=== PATIENT | male | born 1950 | race Caucasian/White ===

== ENCOUNTER 2023-09-06 02:18 | Inpatient (IN) | payer MEDICARE, BC, SELFPAY ==
[2023-09-06] VITALS (14 sets, daily range): BP systolic 93–152; BP diastolic 58–108; PULSE 75–107; RESP 16–20; TEMP 36.2–37.2; O2SAT 94–100; BMI 21.6; BMI 21.7
--- NOTE | 2023-09-06 03:15 | EKG12_ITS ---
Test Reason : PRE-OP Blood Pressure : / mmHG Vent. Rate : 099 BPM Atrial Rate : 099 BPM P-R Int : 156 ms QRS Dur : 084 ms QT Int : 382 ms P-R-T Axes : 051 -01 -06 degrees QTc Int : 490 ms Normal sinus rhythm NS ST T WAVE CHANGES Abnormal ECG No previous ECGs available Confirmed by Harrison Mohamud ([id number]), editor farm journal PORFIRIO SARABIA ([id number]) on 09/08/2023 10:58:10 AM Referred By: YUNG Confirmed By:Harrison Mohamud
[2023-09-06] MEDS: Morphine 2 MG/ML Syringe IV (03:31)
[2023-09-06] MEDS: 0.9% Saline Lock 10 ML Syringe IV (03:33)
[2023-09-06] MEDS: 0.9% Normal Saline (1000mL) 1,000 ML 75 ML IV ×3 (03:35→19:01)
--- NOTE | 2023-09-06 04:04 | HP.PCM_ITS ---
HPI - General General Date of Admission: 09/06/23 Date of Service: 09/06/23 Chief Complaint: Gross hematuria history of recurrent prostate cancer HPI Narrative MARTIN LOWRY, is a 72 M who presents to the hospital with sudden onset of bleeding he has a history of prostate cancer and had a radical prostatectomy in the past he thinks about 5 years ago he had recurrence of disease and had proton beam therapy as salvage radiation therapy afterwards. He then had recurrence after this and is currently taking hormone deprivation therapy as well as Zytiga with prednisone. He is from out of town and was here camping and suddenly developed gross hematuria and he takes blood thinners as well. He was transferred from outside hospital for continued care. On admission he has a catheter in place is got gross blood coming from the catheter the nurses have been irrigating it and despite irrigation is still bloody. So plan to taken the surgery immediately for evacuation of all the blood clots hopefully can cauterize the source of the bleeding get a biopsy probably has recurrence of cancer or could be from radiation cystitis. All this was explained to the patient he obtain consent form and organ to go to surgery once the team is cecile ilable. Patient has significant amount of pain and was given morphine to help with pain control. [facility] Medical History (Updated 09/06/23 @ 04:[address] Kaushik Snow MD) Cancer Diabetes Hypertension Prostate CA Home Medications abiraterone 500 mg tablet 1,000 mg PO DAILY see 09/06/23 [History Last Taken Unknown] cephalexin 250 mg capsule 250 mg PO 4X/DAY atb 09/06/23 [History Last Taken Unknown] dapagliflozin propanediol 10 mg tablet (Farxiga) 10 mg PO DAILY see 09/06/23 [History Last Taken Unknown] ezetimibe 10 mg tablet 10 mg PO DAILY see 09/06/23 [History Last Taken Unknown] lisinopril 5 mg tablet 5 mg PO DAILY high blood pressure 09/06/23 [History Last Taken Unknown] pantoprazole 40 mg tablet,delayed release 40 mg PO DAILY stomach 09/06/23 [History Last Taken Unknown] prednisone 5 mg tablet 5 mg PO DAILY steroid 09/06/23 [History Last Taken Unknown] rosuvastatin 20 mg tablet 20 mg PO QHS 09/06/23 [History Last Taken Unknown] ticagrelor 90 mg tablet (Brilinta) 90 mg PO BID blood thinner 09/06/23 [History Last Taken Unknown] Allergy/AdvReac Type Severity Reaction Status Date / Time prasugrel [From Effient] Allergy Intermediate Hives Verified 09/06/23 02:54 Surgical History History of coronary artery stent placement History of prostatectomy Social History Smoking Status: Never smoker ROS Constitutional Constitutional: Denies chills, fever(s) or malaise Eyes Eyes: Denies blurry vision or change in vision ENT HEENT: Reports none Cardiovascular Cardiovascular: Denies chest pain or palpitations Respiratory/Chest Respiratory/Chest: Denies cough or shortness of breath with exertion Gastrointestinal Gastrointestinal: Denies abdominal pain, constipation or diarrhea Musculoskeletal Musculoskeletal: Denies back pain, joint stiffness or joint swelling Integumentary Integumentary: Denies dry skin, jaundice, lesions or rash Neurologic Neurologic: Denies confusion, syncope or weakness Psychiatric Psychiatric: Reports none; Denies anxiety or depression Endocrine Endocrinology: Denies excessive sweating, fatigue or flushing Hematologic/Lymphatic Hematologic/Lymphatic: Denies anemia, easy bleeding or easy bruising Vital Signs Vital Signs Vital Signs: 09/06/23 02:22 09/06/23 02:57 Temperature 98.1 F Temperature Source Oral Pulse Rate 80 Respiratory Rate 20 H Respiratory Effort Normal Non-Labored Respiratory Depth Normal Respiratory Pattern Normal Blood Pressure 145/88 H Blood Pressure Mean 107 Blood Pressure Source Monitor Blood Pressure Position Semi-Fowlers Blood Pressure Location Left Arm Pulse Ox 100 Oxygen Delivery Method Room Air Room Air Weight Weight: 70.261 kg Body Mass Index (BMI) 21.7 Physical Exam Const alert and oriented x3 General Appearance: cooperative HEENT normocephalic, head/scalp atraumatic, EAC's normal and TM's normal bilaterally Eyes PERRL and EOMs intact bilaterally Pupil: sluggish Neck no lymphadenopathy, supple and no JVD General: trachea midline Lymph Lymphatic: no lymphadenopathy noted, lymphedema and lymphadenopathy Resp normal respiratory effort, normal air movement and clear to auscultation bilaterally Cardio regular rate, regular rhythm and peripheral pulses 2+ throughout GI soft to palpation, non-tender and non-distended Extremity normal capillary refill and no clubbing, cyanosis or edema General Extremity: no tenderness to palpation of joints or extremities Skin no rashes or lesions noted General Skin Exam: turgor normal Lesions: no lesions Rashes: no rashes Neuro CN's II-XII intact bilaterally Speech: speech normal Motor Exam: strength 5/5 throughout; Negative for general weakness Psych thought process normal, cooperative and affect normal Appearance: appropriate Results Medical Records Data Attestation: I reviewed the patient's medical records Lab / Micro Data Attestation: I reviewed the patient's lab results. Imaging CT scan from outside hospital reviewed Assessment & Plan Assessment/Plan (1) Gross hematuria: PLAN: Plan to take her to surgery today for cystoscopy evacuation of his blood clots and cauterization of the bleeding will hold his Brilinta because of the significant bleeding he does have a history of coronary artery disease and had a stent placed in the past (2) Prostate CA: PLAN: Continue with abiraterone and prednisone,
[2023-09-06] MEDS: Cefazolin 1 GM/50 ML BAG IV ×3 (04:26→21:13)
[2023-09-06] MEDS: Lactated Ringers 1,000 ML 15 ML IV (04:34)
--- NOTE | 2023-09-06 05:10 | PCM.OPRPT ---
Report of Operation Date of Procedure: 09/06/23 Pre-Operative Diagnosis: Gross hematuria history of prostate cancer history of proton beam treatment for recurrence of disease Post-Operative Diagnosis: The same bleeding from the bladder neck Surgery/Procedure Performed:: Cystoscopy evacuation of blood clots cauterization of bleeding placement of a three-way Capellan catheter Description of Surgical Findings:: Is a 72-year-old male presented to the hospital as a transfer an outside emergency room with clot retention and severe pain. 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 scrotum is normal I went into the urethra with a 21 Micronesian rigid cystourethroscope was quite bloody hard to see through the channel eventually got all the clots out of the urethral channel and then initially was kind of difficult to find my way through the urethra into the bladder he did have a prostatectomy and also had prior treatment with proton beam therapy so the tissues were very stiff I then put a Glidewire through this cystoscope to help guide my way through this did demonstrate the curvature of the urethra and then once I got some blood clots out I was able to see through the urethra into the bladder again is very stiff but I had I went to the normal channel. Once I got inside the bladder it was completely flow for blood clots irrigated out all the clots out of the bladder and then once again the clots irrigated out I could see active bleeding coming from around the bladder neck but again the bleeding was pretty heavy so is very difficult to see exactly where the bleeding was as it would clear out it would just clot off so I used the Bugbee electrode and cauterized the bladder neck as best as possible but since visualization was so poor I I did not do an extensive amount of cauterization try to avoid injury to the ureteral orifices. Once again most of the clots out and some of the bladder neck cauterized and I put a 24 Micronesian three-way catheter into the bladder 30 cc in the balloon and will start him on continuous irrigation we will hold all blood thinners and will continue irrigation hopefully the bleeding will stop but again it was not able to stop it with the cauterization since it was extensive mount of bleeding around the bladder neck but will try catheter irrigation and conservative measures is to get the bleeding stopped. I will consult hospitalist service to help assist with his medical care we will get a set up labs CBC and a BMP in the PACU. Surgeon: Kaushik Snow Type of Anesthesia: MAC and Topical Anesth Drains: [address] Admit VTE Documentation VTE Present on Admission: No VTE Mechan Device Prophylaxis: SCD's VTE Pharm Prophylaxis ordered?: No
[2023-09-06 05:51] LABS: Absolute Lymphocyte Count 2.08 X10^3/uL (0.83-4.51); Absolute Neutrophil Count 14.7 X10^3/uL (2.0-7.7); Basophil# 0.09 X10^3/uL; Basophil% 0.5 % (0-1); Eosinophils% 0.5 % (0-5); Hematocrit 40.6 % (40-54); Lymphocyte # 2.08 X10^3/ul (0.83-4.51); Lymphocyte % 11.4 % (19-41); Mean Corpuscular Hgb 31.1 pg (27.0-32.0); Mean Corpuscular Volume 97.1 fL (80-94); Mean Platelet Vol. 10.5 fl (6.2-12.0); Monocyte# 1.12 X10^3/uL; Monocyte% 6.1 % (0-10); NRBC Flagged by Analyzer 0 % (0-5); Neutrophil # 14.74 X10^3/uL (2.7-7.7); Neutrophil % 80.8 % (47-70); Platelet Count 235 K/mm3 (150-450); RBC Distribution Width CV 13.3 % (11.6-14.6); RBC Distribution Width SD 47.8 fl (35.1-43.9); Red Blood Count 4.18 M/mm3 (4.6-6.2); White Blood Count 18.3 K/mm3 (4.4-11.0)
[2023-09-06 05:55] LABS: Anion Gap 10 (5-15); BUN 20 mg/dL (7-18); BUN/Creat Ratio 16.9 RATIO (10-20); Calcium,Total 8.4 mg/dL (8.5-10.1); Chloride 109 mmol/L (98-107); Creatinine, Serum 1.18 mg/dL (0.70-1.30); EST Glomerular Filtration Rate 64 mL/min (>60); Est Glom Filt Rate - Afr Amer 77 mL/min (>60); Estimated Creatinine Clearance 54.58 ml/min; Glucose 131 mg/dL (74-106); Potassium 3.4 mmol/L (3.5-5.1); Sodium Level 139 mmol/L (136-145)
[2023-09-06 05:57] LABS: Bedside Glucose 122 mg/dL (74-106)
[2023-09-06] MEDS: predniSONE 5 MG Tablet PO (07:55)
[2023-09-06] MEDS: Ezetimibe 10 MG Tablet PO (07:55)
[2023-09-06] MEDS: Pantoprazole Sodium 40 MG Tablet PO (07:55)
[2023-09-06] MEDS: Lisinopril 5 MG Tablet PO (07:55)
[2023-09-06] MEDS: Empagliflozin 25 MG Tablet PO (07:56)
--- NOTE | 2023-09-06 10:40 | CASEMGMT ---
RN?CM?PILATES INSTRUCTOR?CM?to room to meet with patient and for initial transition planning/care coordination?assessment.?RN?CM?introduced self and role at [facility].? Pt resting in bed w/eyes closed during most of the assessment and stated he is very tired. Most questions answered by . Care providers, pharmacy, and demographics verified/updated at this time. PCP: Dr Duong Yancey @ [facility] in [facility] Specialists:Dr Eliud Meyers (cardiology) and Dr Dickson (oncology)--both in [facility]. Preferred Pharmacy: [facility] Retail @ discharge. Insurance: MCR A/B, [place] Prescription Benefit:?yes LNOK: Becca Living Arrangements: Lives w/his in [place]. Independent. They came to [place] in their camper for the eclipse and camping in [place]. Pt is independent and able to assist, if needed. Transportation:?Pt and both drive. Camp general dentist/owner brought to [facility] this morning, as does not like to drive the camper far distances. Depending on how long pt will be in the hospital, the camp general dentist/owner offered to drive their camper closer to [facility] so is closer and can get transportation back/forth to [facility] easier. DME: ?Pt has a functioning glucometer w/supplies. HHC/SNF: No hx of either. Pt and wish for pt to return back to his camper @ discharge and then pt plans to drive camper back to [place] when he is able to drive that far. voices concerns re: cause of the bleeding and would like to talk w/Dr Snow. Omaira, MS3 RN CM, made aware. PLAN:??Home/back to camper w/ and then back to [place] when able to drive/travel that far. Kate BSN?RN?CM
[2023-09-06] MEDS: Ensure Plus High Protein 120 ML LIQUID PO (13:52)
--- NOTE | 2023-09-06 14:38 | PN.HOSP_ITS ---
Reason for Visit Reason for Visit: Diagnoses Malignant neoplasm of prostate (09/06/23) Gross hematuria (09/06/23) Subjective Subjective Patient was seen and examined today at request of urology, patient was admitted with hematuria, [place] was [place] from [place]. Patient has a history of prostate cancer with complete prostatectomy and follow-up radiation, he was taken to surgery today and a cystoscopy was done which showed bleeding at the bladder neck, this area was cauterized and the patient is in his room with a three-way Capellan undergoing bladder irrigation. Patient's past medical history includes several stents in the coronary artery, the last stent was placed in July 2023. Patient was on aspirin and Brilinta on admission. He is also taking a medication for prostate cancer. Patient states he was recently diagnosed with type 2 diabetes. Other medical problems include hyperlipidemia and essential hypertension. Objective Data Objective Data Vital Signs: Vital Signs Temp Pulse Resp BP Pulse Ox O2 Del Method 98.2 F 97 16 109/64 95 Room Air 09/06/23 14:00 09/06/23 14:00 09/06/23 14:00 09/06/23 14:00 09/06/23 14:00 09/06/23 14:00 Oxygen Delivery Method Room Air Weight: 70.261 kg Body Mass Index (BMI) 21.7 Intake & Output: Intake and Output for Last 24 Hours 09/04/23 09/05/23 09/06/23 23:59 23:59 23:59 Intake Total 1250 / 1250 Output Total 1999 / 1999 Balance -750 / -750 Lab / Micro Data 09/06/23 05:30 09/06/23 05:30 Labs: Laboratory Results - last 24 hr 09/06/23 05:30: WBC 18.3 H, RBC 4.18 L, Hgb 13.0, Hct 40.6, MCV 97.1 H, MCH 31.1, MCHC 32.0, RDW Std Deviation 47.8 H, RDW Coeff of Rayo 13.3, Plt Count 235, MPV 10.5, Immature Gran % (Auto) 0.700, Neut % (Auto) 80.8 H, Lymph % (Auto) 11.4 L, Bland % (Auto) 6.1, Eos % (Auto) 0.5, Baso % (Auto) 0.5, Absolute Neuts (auto) 14.7 H, Absolute Lymphs (auto) 2.08, Nucleated RBC % 0, Sodium 139, Potassium 3.4 L, Chloride 109 H, Carbon Dioxide 20.0 L, Anion Gap 10, BUN 20 H, Creatinine 1.18, Estim Creat Clear Calc 54.58, Est GFR (MDRD) Af Amer 77, Est GFR (MDRD) Non-Af 64, BUN/Creatinine Ratio 16.9, Glucose 131 H, Calcium 8.4 L 09/06/23 05:38: POC Glucose 122 H Physical Exam Const alert, oriented x3, no apparent distress, average body habitus and healthy appearing Constitutional Narrative: Patient has a three-way Capellan in place and is receiving bladder irrigation with return of bloody urine. General Appearance: cooperative, well kempt and well developed Orientation / Consciousness: awake, oriented to person, oriented to place and oriented to time HEENT normocephalic, head/scalp atraumatic and moist oral mucous membranes Eyes PERRL, EOMs intact bilaterally and conjunctivae normal Neck supple, no JVD, thyroid normal and no carotid bruits General: trachea midline Resp normal respiratory effort, no retractions, no use of accessory muscles and clear to auscultation bilaterally Auscultation: Negative for rales, rhonchi or wheezes Cardio regular rate, regular rhythm, S1 normal heart sound, S2 normal heart sound, no murmurs, no rub and no gallops GI normal to inspection, nondistended, normoactive bowel sounds, soft to palpation, non-tender and non-distended Extremity no clubbing, cyanosis or edema Skin no rashes or lesions noted General Skin Exam: no breakdown Neuro oriented x3, CN's II-XII intact bilaterally, moves all extremities, no focal motor deficits and no sensory deficits noted Sensorium / Orientation: awake, alert, oriented to person, oriented to place and oriented to time Speech: speech normal Psych affect normal Assessment & Plan Assessment/Plan (1) Gross hematuria: PLAN: Plan 1. Coronary artery disease-status post stent placement in July 2023-patient is currently off his Brilinta and aspirin, I will talk to his health information provider to find out if he can be switched to Plavix instead of Brilinta when he resumes the medication. #2 essential hypertension-patient will remain on his home medications, blood pressure will be monitored #3 prostate cancer-complicates care, management, recovery, and prognosis #4 type 2 diabetes-blood sugars will be monitored, sliding scale insulin will be administered as needed #5 gross hematuria secondary to bladder neck bleeding-patient is currently getting bladder irrigation, urology is managing his care Total clinical time spent by myself addressing the patient's medical issues, reviewing all of his data, and collaborating with patient's care team: 35 minutes Charges/Coding Visit Charges Inpatient E&M: 43288 Subs Hosp L2
--- NOTE | 2023-09-06 15:29 | CASEMGMT ---
Social Work Pt has been seen for SDOH screening. Pt and deny any home needs. Pt is from [place] and is traveling in the area in an RV with . Pt's had concerns with transportation back and forth from [place] and has contacted a car rental who will be delivering a car to the hospital today for 's transportation. Pt will discharge to the RV, which does have electric and water hookup, and stay until pt feels well enough to drive the RV home. Pt and with no additional needs. LILA Griffith
--- NOTE | 2023-09-06 15:47 | CHAPLAIN ---
Type of Pastoral Visit __x_ Initial Visit ___ Follow-up Visit ___ On-call Visit ___ General Patient Visit ___ Spiritual Assessment ___ Family Conference ___ Bereavement ___ Rapid Response ___ Code Blue ___ Other (describe below) Pastoral Care Referral From _x__ Patient ___ Family ___ Nurse ___ Physician ___ Hotel Maintenance Engineer ___ Obstetric Anaesthetist ___ Other (describe below) Sacrament/Intervention _x__ Active listening ___ Anointing ___ Baptist ___ Bereavement ___ Communion ___ Dana exploration ___ ___ Life review _x__ Prayer ___ Reconciliation ___ Sacrament of Sick _x__ Supportive presence ___ Wedding ___ Other (describe below) Pastoral Comments patient is from out of state; spouse is with him; both are welcoming of presence and spiritual care help; pt just returned from procedure and has some pain; prayer offered in support of relief; presence given to listen to their story; spouse asks for help about getting a rental car; this mechanical cad designer made phone call to local [employer] to assist spouse in her need for a car; [employer] will pick her up and get a car for her use;
--- NOTE | 2023-09-06 16:29 | NURSING ---
All documentation by student records coordinator, Zak Barba, reviewed by dance instructor, Veronica CERVANTES, RN.
[2023-09-06] MEDS: Atorvastatin Calcium 40 MG Tablet PO (21:13)
[2023-09-06] MEDS: Acetaminophen 325 MG Tablet 650 MG PO (21:13)
[2023-09-06 23:04] LABS: Bedside Glucose 159 mg/dL (74-106)
[2023-09-07 01:54] VITALS: BP 117/62; PULSE 78; RESP 18; TEMP 36.6; O2SAT 98
[2023-09-07 05:23] VITALS: BP 133/72; PULSE 63; RESP 18; TEMP 36.6; O2SAT 99
[2023-09-07] MEDS: Cefazolin 1 GM/50 ML BAG IV ×3 (05:25→22:00)
[2023-09-07] MEDS: 0.9% Normal Saline (1000mL) 1,000 ML 75 ML IV (07:06)
--- NOTE | 2023-09-07 07:41 | PCM.PN.GU ---
Subjective Subjective Patient presented with gross hematuria and bleeding from his bladder neck history of prostate cancer had radiation in the past, he was on Brilinta because a recent heart stent about a month ago so organ to start him back up on baby aspirin urine is clear today we can stop irrigation hopefully tomorrow we can send the patient home either with or without the catheter might be better to go home with a catheter less chance of bleeding while to consider this. I think we need to hold his Brilinta for like 7 days if were able to discuss this with his customer project manager in [place] I be happy to talk with them or he can talk to the hospitalist but I think for now I can start him back on baby aspirin as a protective factor and a break and would probably restart his Brilinta in about a week. Objective Data Objective Data Vital Signs: Vital Signs Temp Pulse Resp BP Pulse Ox O2 Del Method 97.9 F 63 18 133/72 H 99 Room Air 09/07/23 05:23 09/07/23 05:23 09/07/23 05:23 09/07/23 05:23 09/07/23 05:23 09/07/23 05:23 Oxygen Delivery Method Room Air Weight: 70.261 kg Body Mass Index (BMI) 21.7 Intake & Output: Intake and Output for Last 24 Hours 09/05/23 09/06/23 09/07/23 23:59 23:59 23:59 Intake Total 2277.5 / 2277.5 956.25 / 956.25 Output Total 8475 / 8475 1400 / 1400 Balance -6197.5 / -6197.5 -443.75 / -443.75 Lab / Micro Data 09/06/23 05:30 09/06/23 05:30 Labs: Laboratory Results - last 24 hr 09/06/23 21:22: POC Glucose 159 H
[2023-09-07 07:54] LABS: Bedside Glucose 89 mg/dL (74-106)
[2023-09-07 09:27] LABS: Absolute Lymphocyte Count 1.61 X10^3/uL (0.83-4.51); Absolute Neutrophil Count 11.2 X10^3/uL (2.0-7.7); Basophil# 0.06 X10^3/uL; Basophil% 0.4 % (0-1); Eosinophil# 0.32 X10^3/uL; Eosinophils% 2.2 % (0-5); Hematocrit 26.6 % (40-54); Hemoglobin 8.8 g/dL (13.0-16.5); Lymphocyte # 1.61 X10^3/ul (0.83-4.51); Lymphocyte % 11.3 % (19-41); Mean Corp Hgb Conc 33.1 g/dL (32-36); Mean Corpuscular Hgb 31.3 pg (27.0-32.0); Mean Corpuscular Volume 94.7 fL (80-94); Mean Platelet Vol. 10.3 fl (6.2-12.0); Monocyte# 1.04 X10^3/uL; Monocyte% 7.3 % (0-10); NRBC Flagged by Analyzer 0 % (0-5); Neutrophil # 11.18 X10^3/uL (2.7-7.7); Neutrophil % 78.3 % (47-70); Platelet Count 201 K/mm3 (150-450); RBC Distribution Width CV 13.6 % (11.6-14.6); RBC Distribution Width SD 47.1 fl (35.1-43.9); Red Blood Count 2.81 M/mm3 (4.6-6.2); White Blood Count 14.3 K/mm3 (4.4-11.0)
[2023-09-07 09:30] VITALS: BP 121/69; PULSE 91; RESP 16; TEMP 36.9; O2SAT 99
[2023-09-07] MEDS: Lisinopril 5 MG Tablet PO (09:33)
[2023-09-07] MEDS: Pantoprazole Sodium 40 MG Tablet PO (09:33)
[2023-09-07] MEDS: predniSONE 5 MG Tablet PO (09:33)
[2023-09-07] MEDS: Aspirin 81 MG TAB.CHEW PO (09:35)
[2023-09-07] MEDS: guaiFENesin Dm 10 ML UDC PO (11:49)
[2023-09-07 11:54] LABS: Bedside Glucose 153 mg/dL (74-106)
[2023-09-07] MEDS: Ensure Plus High Protein 120 ML LIQUID PO (14:32)
[2023-09-07 14:36] VITALS: BP 96/60; PULSE 81; RESP 16; TEMP 36.7; O2SAT 98
--- NOTE | 2023-09-07 16:56 | PN.HOSP_ITS ---
Reason for Visit Reason for Visit: Diagnoses Malignant neoplasm of prostate (09/06/23) Gross hematuria (09/06/23) Subjective Subjective Patient was seen and examined today, he still having hematuria but he appears more comfortable. CBC was obtained today and shows his hemoglobin is dropped to 8.8. Objective Data Objective Data Vital Signs: Vital Signs Temp Pulse Resp BP Pulse Ox O2 Del Method 98.1 F 81 16 96/60 98 Room Air 09/07/23 14:36 09/07/23 14:36 09/07/23 14:36 09/07/23 14:36 09/07/23 14:36 09/07/23 14:36 Oxygen Delivery Method Room Air Weight: 70.261 kg Body Mass Index (BMI) 21.7 Intake & Output: Intake and Output for Last 24 Hours 09/05/23 09/06/23 09/07/23 23:59 23:59 23:59 Intake Total 2277.5 / 2277.5 1636.50 / 1636.50 Output Total 8475 / 8475 2970 / 2970 Balance -6197.5 / -6197.5 -1333.50 / -1333.50 Lab / Micro Data 09/07/23 09:17 09/06/23 05:30 Labs: Laboratory Results - last 24 hr 09/06/23 21:22: POC Glucose 159 H 09/07/23 07:14: POC Glucose 89 09/07/23 09:17: WBC 14.3 H, RBC 2.81 L, Hgb 8.8 L, Hct 26.6 L, MCV 94.7 H, MCH 31.3, MCHC 33.1, RDW Std Deviation 47.1 H, RDW Coeff of Rayo 13.6, Plt Count 201, MPV 10.3, Immature Gran % (Auto) 0.500, Neut % (Auto) 78.3 H, Lymph % (Auto) 11.3 L, Stearns % (Auto) 7.3, Eos % (Auto) 2.2, Baso % (Auto) 0.4, Absolute Neuts (auto) 11.2 H, Absolute Lymphs (auto) 1.61, Nucleated RBC % 0 09/07/23 11:26: POC Glucose 153 H Physical Exam Narrative alert, oriented x3, no apparent distress, average body habitus and healthy appearing Constitutional Narrative: Patient has a three-way Capellan in place and is receiving bladder irrigation with return of bloody urine. General Appearance: cooperative, well kempt and well developed Orientation / Consciousness: awake, oriented to person, oriented to place and oriented to time HEENT normocephalic, head/scalp atraumatic and moist oral mucous membranes Eyes PERRL, EOMs intact bilaterally and conjunctivae normal Neck supple, no JVD, thyroid normal and no carotid bruits General: trachea midline Resp normal respiratory effort, no retractions, no use of accessory muscles and clear to auscultation bilaterally Auscultation: Negative for rales, rhonchi or wheezes Cardio regular rate, regular rhythm, S1 normal heart sound, S2 normal heart sound, no murmurs, no rub and no gallops GI normal to inspection, nondistended, normoactive bowel sounds, soft to palpation, non-tender and non-distended Extremity no clubbing, cyanosis or edema Skin no rashes or lesions noted General Skin Exam: no breakdown Neuro oriented x3, CN's II-XII intact bilaterally, moves all extremities, no focal motor deficits and no sensory deficits noted Sensorium / Orientation: awake, alert, oriented to person, oriented to place and oriented to time Speech: speech normal Psych affect normal Assessment & Plan Assessment/Plan (1) Gross hematuria: PLAN: Plan 1. Coronary artery disease-status post stent placement in July 2023-patient is currently off his Brilinta and aspirin, I received a phone call from his cutter apprentice hand covering biomedical service engineer today (nurse practitioner), she thought that changing the patient to Plavix at the time of discharge from the hospital and stopping his Brilinta was okay, she told me that the cutter apprentice hand would call me if there was any problem with that. As of the time of this dictation, I have not received a phone call back from his cutter apprentice hand. I discussed this with the patient today at my visit. #2 essential hypertension-patient will remain on his home medications, blood pressure will be monitored #3 prostate cancer-complicates care, management, recovery, and prognosis #4 type 2 diabetes-blood sugars will be monitored, sliding scale insulin will be administered as needed #5 gross hematuria secondary to bladder neck bleeding-patient is currently getting bladder irrigation, urology is managing his care #6 acute blood loss anemia secondary to acute hematuria-patient will not need transfused at this time Total clinical time spent by myself addressing the patient's medical issues, reviewing all of his data, and collaborating with patient's care team: 35 minutes Charges/Coding Visit Charges Inpatient E&M: 70907 Subs Hosp L2
[2023-09-07 17:27] LABS: Bedside Glucose 203 mg/dL (74-106)
[2023-09-07 20:40] VITALS: BP 108/60; PULSE 80; RESP 16; TEMP 37.1; O2SAT 98
[2023-09-07] MEDS: Ezetimibe 10 MG Tablet PO (22:03)
[2023-09-07] MEDS: Rosuvastatin 20 MG Tablet PO (22:28)
[2023-09-08] VITALS (13 sets, daily range): BP systolic 100–145; BP diastolic 60–88; PULSE 64–98; RESP 16–20; TEMP 36.1–37; O2SAT 96–100; BMI 21.7
--- NOTE | 2023-09-08 | THRO_PTH ---
PATIENT: MARTIN LOWRY LOC: MS3 U#:[id number] AGE/SX: 72/M ROOM: [id number] RE09/06/[address]: Dr. Kaushik Snow MD : [id number] BED: 1 DIS: 09/11/2023 SPEC #: [id number] RECD: 09/08/23 18:30 STATUS: ROBI CASTANON #: [id number] CIARA: 09/08/23 00:[address]: Kaushik Snow DEPT: SURGICAL PATHOLOGY RECD BY: Henry Rossi ENTERED: 09/11/23 10:07 SP TYPE: THROMBUS OTHR DR: DO Dr. Luis Manuel Almanza DO Tissues: BLOOD CLOT, NOS Procedures: Surgery Specimen Level III HEADER OPERATION: Cysto, Evacuation hematoma, cautery PRE-OP DIAGNOSIS: Radiation cystitis, prostate cancer, gross hematuria TISSUE SUBMITTED: Blood clot MICROSCOPIC DIAGNOSIS Blood clot, evacuation hematoma: Fragments of blood clot. / 09/12/23 MICROSCOPIC DESCRIPTION Slides are reviewed. GROSS DESCRIPTION Received in fixative is one container labeled with the patient's name and designated Clots. The specimen consists of multiple fragments of blood clots that in aggregate measure 9.0 x 9.0 x 4.0 cm. The specimen is totally submitted in one cassette. No tissue is identified. Case Specialist specimen is submitted in one cassettes. / 09/11/23 TC:5 CPT: 31822
[2023-09-08 00:35] LABS: Bedside Glucose 141 mg/dL (74-106)
[2023-09-08] MEDS: Cefazolin 1 GM/50 ML BAG IV ×3 (06:11→21:16)
[2023-09-08] MEDS: 0.9% Saline Lock 10 ML Syringe IV (06:11)
[2023-09-08 06:50] LABS: Bedside Glucose 112 mg/dL (74-106)
--- NOTE | 2023-09-08 06:58 | PCM.PN.GU ---
Subjective Subjective Yesterday morning and the urine was completely clear we did start him on baby aspirin now he is bleeding more still has ongoing bleeding. Will make him n.p.o. after taken back to surgery and try to cauterize the bladder again I am also going to run 1% out of the bladder see back if the bleeding stopped I made no guarantees the patient is possible that I could get the bleeding stopped and might be difficult the bleeding does not stop mild to get transferred out. Other problems and I have to leaving [facility]. Patient is aware that have to be leaving [facility]'s possibly made to get transferred out. Objective Data Objective Data Vital Signs: Vital Signs Temp Pulse Resp BP Pulse Ox O2 Del Method 97.9 F 64 16 105/60 96 Room Air 09/08/23 02:05 09/08/23 02:05 09/08/23 02:05 09/08/23 02:05 09/08/23 02:05 09/08/23 02:05 Oxygen Delivery Method Room Air Weight: 70.261 kg Body Mass Index (BMI) 21.7 Intake & Output: Intake and Output for Last 24 Hours 09/06/23 09/07/23 09/08/23 23:59 23:59 23:59 Intake Total 2277.5 / 2277.5 1686.50 / 1686.50 50 / 50 Output Total 8475 / 8475 3820 / 4620 1300 / 1300 Balance -6197.5 / -6197.5 -2133.50 / -2933.50 -1250 / -1250 Lab / Micro Data 09/07/23 09:17 09/06/23 05:30 Labs: Laboratory Results - last 24 hr 09/07/23 07:14: POC Glucose 89 09/07/23 09:17: WBC 14.3 H, RBC 2.81 L, Hgb 8.8 L, Hct 26.6 L, MCV 94.7 H, MCH 31.3, MCHC 33.1, RDW Std Deviation 47.1 H, RDW Coeff of Rayo 13.6, Plt Count 201, MPV 10.3, Immature Gran % (Auto) 0.500, Neut % (Auto) 78.3 H, Lymph % (Auto) 11.3 L, [place] % (Auto) 7.3, Eos % (Auto) 2.2, Baso % (Auto) 0.4, Absolute Neuts (auto) 11.2 H, Absolute Lymphs (auto) 1.61, Nucleated RBC % 0 09/07/23 11:26: POC Glucose 153 H 09/07/23 16:29: POC Glucose 203 H 09/07/23 21:58: POC Glucose 141 H 09/08/23 06:13: POC Glucose 112 H
[2023-09-08 07:53] LABS: Absolute Lymphocyte Count 2.26 X10^3/uL (0.83-4.51); Absolute Neutrophil Count 9.7 X10^3/uL (2.0-7.7); Basophil# 0.09 X10^3/uL; Basophil% 0.7 % (0-1); Eosinophil# 0.44 X10^3/uL; Eosinophils% 3.3 % (0-5); Hematocrit 24.1 % (40-54); Hemoglobin 7.8 g/dL (13.0-16.5); Lymphocyte # 2.26 X10^3/ul (0.83-4.51); Lymphocyte % 16.7 % (19-41); Mean Corp Hgb Conc 32.4 g/dL (32-36); Mean Corpuscular Volume 95.6 fL (80-94); Mean Platelet Vol. 10.6 fl (6.2-12.0); Monocyte# 0.88 X10^3/uL; Monocyte% 6.5 % (0-10); NRBC Flagged by Analyzer 0 % (0-5); Neutrophil # 9.74 X10^3/uL (2.7-7.7); Neutrophil % 72.1 % (47-70); Platelet Count 203 K/mm3 (150-450); RBC Distribution Width CV 13.5 % (11.6-14.6); RBC Distribution Width SD 47.3 fl (35.1-43.9); Red Blood Count 2.52 M/mm3 (4.6-6.2); White Blood Count 13.5 K/mm3 (4.4-11.0)
--- NOTE | 2023-09-08 07:59 | NURSING ---
HELPED PT BACK TO BED WITH BARBARA RN - PT FEELING VERY LIGHT HEADED- WILL BE GOING BACK TO SURGERY TODAY AND HBG PENDING - PT WILL REMAIN ON BEDREST - VS OBTAINED AND WNL
--- NOTE | 2023-09-08 11:49 | PCM.PN.HOSP ---
Reason for Visit Reason for Visit: Diagnoses Malignant neoplasm of prostate (09/06/23) Gross hematuria (09/06/23) Subjective Subjective Patient was seen and examined today, he is due to go to surgery by urology today due to continued hematuria. Patient's hemoglobin this morning was 7.8, I had nursing place a line by the PIC nurse so that we could draw labs and give blood. Patient's was in the room and I talked with her also. Objective Data Objective Data Vital Signs: Vital Signs Temp Pulse Resp BP Pulse Ox O2 Del Method 98.1 F 91 18 100/65 97 Room Air 09/08/23 08:00 09/08/23 08:00 09/08/23 08:00 09/08/23 08:00 09/08/23 08:00 09/08/23 08:24 Oxygen Delivery Method Room Air Weight: 70.261 kg Body Mass Index (BMI) 21.7 Intake & Output: Intake and Output for Last 24 Hours 09/06/23 09/07/23 09/08/23 23:59 23:59 23:59 Intake Total 2277.5 / 2277.5 1686.50 / 1686.50 50 / 50 Output Total 8475 / 8475 3820 / 4620 2530 / 2530 Balance -6197.5 / -6197.5 -2133.50 / -2933.50 -2480 / -2480 Lab / Micro Data 09/08/23 06:53 09/06/23 05:30 Labs: Laboratory Results - last 24 hr 09/07/23 11:26: POC Glucose 153 H 09/07/23 16:29: POC Glucose 203 H 09/07/23 21:58: POC Glucose 141 H 09/08/23 06:13: POC Glucose 112 H 09/08/23 06:53: WBC 13.5 H, RBC 2.52 L, Hgb 7.8 L, Hct 24.1 L, MCV 95.6 H, MCH 31.0, MCHC 32.4, RDW Std Deviation 47.3 H, RDW Coeff of Rayo 13.5, Plt Count 203, MPV 10.6, Immature Gran % (Auto) 0.700, Neut % (Auto) 72.1 H, Lymph % (Auto) 16.7 L, [place] % (Auto) 6.5, Eos % (Auto) 3.3, Baso % (Auto) 0.7, Absolute Neuts (auto) 9.7 H, Absolute Lymphs (auto) 2.26, Nucleated RBC % 0 Physical Exam Narrative alert, oriented x3, no apparent distress, average body habitus and healthy appearing Constitutional Narrative: Patient has a three-way Capellan in place and is receiving bladder irrigation with return of bloody urine. General Appearance: cooperative, well kempt and well developed Orientation / Consciousness: awake, oriented to person, oriented to place and oriented to time HEENT normocephalic, head/scalp atraumatic and moist oral mucous membranes Eyes PERRL, EOMs intact bilaterally and conjunctivae normal Neck supple, no JVD, thyroid normal and no carotid bruits General: trachea midline Resp normal respiratory effort, no retractions, no use of accessory muscles and clear to auscultation bilaterally Auscultation: Negative for rales, rhonchi or wheezes Cardio regular rate, regular rhythm, S1 normal heart sound, S2 normal heart sound, no murmurs, no rub and no gallops GI normal to inspection, nondistended, normoactive bowel sounds, soft to palpation, non-tender and non-distended Extremity no clubbing, cyanosis or edema Skin no rashes or lesions noted General Skin Exam: no breakdown Neuro oriented x3, CN's II-XII intact bilaterally, moves all extremities, no focal motor deficits and no sensory deficits noted Sensorium / Orientation: awake, alert, oriented to person, oriented to place and oriented to time Speech: speech normal Psych affect normal Assessment & Plan Assessment/Plan (1) Gross hematuria: PLAN: Plan 1. Coronary artery disease-status post stent placement in July 2023-patient is currently off his Brilinta and aspirin, I received a phone call from his blood bank technician covering medical oncology physician today (nurse practitioner), she thought that changing the patient to Plavix at the time of discharge from the hospital and stopping his Brilinta was okay, she told me that the blood bank technician would call me if there was any problem with that. As of the time of this dictation, I have not received a phone call back from his blood bank technician. I discussed this with the patient today at my visit. #2 essential hypertension-patient will remain on his home medications, blood pressure will be monitored #3 prostate cancer-complicates care, management, recovery, and prognosis #4 type 2 diabetes-blood sugars will be monitored, sliding scale insulin will be administered as needed #5 gross hematuria secondary to bladder neck bleeding-again urology will be taking the patient to surgery today, I talked to urology concerning placing the patient on Plavix at the time of discharge from the hospital. #6 acute blood loss anemia secondary to acute hematuria-patient will not need transfused at this time, CBC will be repeated tomorrow Total clinical time spent by myself addressing the patient's medical issues, reviewing all of his data, and collaborating with patient's care team: 35 minutes Charges/Coding Visit Charges Inpatient E&M: 45735 Subs Hosp L2
--- NOTE | 2023-09-08 12:15 | NURSING ---
Addendum entered by Lizzy Rueda 09/08/23 12:18: Inserted by Mimi Mendoza NP Original Note: Extended catheter IV inserted by Mimi. 20 gauge IV, 8cm. Dressing in tact. Flushed with saline, patent. IV fluids running.
[2023-09-08 12:21] LABS: Bedside Glucose 81 mg/dL (74-106)
--- NOTE | 2023-09-08 13:15 | NURSING ---
Pt sent to OR
[2023-09-08] MEDS: 0.9% Normal Saline (1000mL) 1,000 ML 15 ML IV (13:44)
--- NOTE | 2023-09-08 14:11 | PN.URO_ITS ---
Subjective Subjective 72-year-old male with a history of heart disease had a stent in recently was on Brilinta started bleeding from the prostate and bladder neck area history of prostate cancer with prostatectomy and removal of his prostate followed by radiation afterwards. He has been having significant bleeding which has not stopped just after irrigation and cauterizations or can taken back to surgery today cauterized the bladder neck which I think is where the source of bleeding is put another catheter and continue with irrigation. I was can use alum irrigation but the pharmacy did not have any alum available they are out of stock. Spoke to the patient today told him it is possible that with this procedure he could have worse bladder control afterwards and so have to cauterize more inside the bladder and prostate neck area here he has incontinence from his prostatectomy long time ago has to wear several pads per day I did warn the patient is possible this could get worse. Hopefully will stop the bleeding he is off all blood thinners he is at risk of having his coronary stent occlude because of the bleeding his blood thinners are on hold. Objective Data Objective Data Vital Signs: Vital Signs Temp Pulse Resp BP Pulse Ox O2 Del Method 98.0 F 87 16 103/65 98 Room Air 09/08/23 13:31 09/08/23 13:31 09/08/23 13:31 09/08/23 13:31 09/08/23 13:31 09/08/23 13:31 Oxygen Delivery Method Room Air Weight: 70.261 kg Body Mass Index (BMI) 21.7 Intake & Output: Intake and Output for Last 24 Hours 09/06/23 09/07/23 09/08/23 23:59 23:59 23:59 Intake Total 2277.5 / 2277.5 1686.50 / 1686.50 50 / 50 Output Total 8475 / 8475 3820 / 4620 3430 / 3430 Balance -6197.5 / -6197.5 -2133.50 / -2933.50 -3380 / -3380 Lab / Micro Data 09/08/23 06:53 09/06/23 05:30 Labs: Laboratory Results - last 24 hr 09/07/23 16:29: POC Glucose 203 H 09/07/23 21:58: POC Glucose 141 H 09/08/23 06:13: POC Glucose 112 H 09/08/23 06:53: WBC 13.5 H, RBC 2.52 L, Hgb 7.8 L, Hct 24.1 L, MCV 95.6 H, MCH 31.0, MCHC 32.4, RDW Std Deviation 47.3 H, RDW Coeff of Rayo 13.5, Plt Count 203, MPV 10.6, Immature Gran % (Auto) 0.700, Neut % (Auto) 72.1 H, Lymph % (Auto) 16 .7 L, [place] % (Auto) 6.5, Eos % (Auto) 3.3, Baso % (Auto) 0.7, Absolute Neuts (auto) 9.7 H, Absolute Lymphs (auto) 2.26, Nucleated RBC % 0 09/08/23 12:01: POC Glucose 81
--- NOTE | 2023-09-08 15:23 | OP.PCM_ITS ---
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 Post-Operative Diagnosis: The same Surgery/Procedure Performed:: Cystoscopy evacuation of blood clots and cauterization of bleeding from the bladder Description of Surgical Findings:: This is a 72-year-old male has a history of prostate cancer received radiation therapy in the past presented to the hospital with significant bleeding he recently had a heart attack and had a stent placed so he was on Brilinta and then developed significant bleeding took him to surgery in the middle the night 2 nights ago and reviewed moved a bunch of blood clots and cauterize some bleeding from the bladder neck we tried conservative measures with irrigation but has failed and continues to have bleeding and significant blood clots so is taken back to surgery again for second time this summer to do try to do more extensive cauterization as he would get the bleeding to stop . Taken back to the operating room this with induction of general anesthesia he was placed in dorsolithotomy position. The catheter was removed and then I went in with a 26 [place]utanese continuous-flow Olympus bipolar resectoscope I first Ellik out a significant amount of blood clots within the bladder I then used the button in the high setting on the coagulation and started cauterizing the bleeding blood vessels first was difficult to tell where it is coming from as bleeding from all over the place around the bladder neck anterior around the trigone so I cauterized extensively try to identify the ureteral orifices but it was very hard to see where the ureter orifices were with all the inflammation around the bladder neck just just very try to carefully cauterize without the ureteral orifices were not I cauterized around the bladder neck and cauterize anteriorly after cauterizing extensively that I think I got the bleeding stopped I drained the bladder folded up slowly let the bladder drained floated into the active bleeding there was another bleeding from the anterior bladder neck and cauterized this again and then I injected second time fill the bladder let it drain and this time I did not see more bleeding I then remove the cystoscope we placed a 22 [place]ut[place] catheter in the bladder irrigated and placed 30 cc in the balloon and put on continuous irrigation we will keep the patient in the hospital with continuous bladder irrigation on leg and to stop it for a few days and will continue with irrigation and we will hold all blood thinners.6 plan to check a CBC and a BMP in the PACU it is possible he may need a blood transfusion let the know Surgeon: Kaushik Snow Type of Anesthesia: General Estimated Blood Loss (mL): 300cc Admit VTE Documentation VTE Present on Admission: No VTE Mechan Device Prophylaxis: SCD's VTE Pharm Prophylaxis ordered?: No
[2023-09-08 16:03] LABS: Hematocrit 20.9 % (40-54); Hemoglobin 6.8 g/dL (13.0-16.5); Mean Corp Hgb Conc 32.5 g/dL (32-36); Mean Corpuscular Hgb 30.8 pg (27.0-32.0); Mean Corpuscular Volume 94.6 fL (80-94); Mean Platelet Vol. 10.4 fl (6.2-12.0); Platelet Count 183 K/mm3 (150-450); RBC Distribution Width CV 13.4 % (11.6-14.6); RBC Distribution Width SD 46.8 fl (35.1-43.9); Red Blood Count 2.21 M/mm3 (4.6-6.2); White Blood Count 9.1 K/mm3 (4.4-11.0)
[2023-09-08 16:11] LABS: Anion Gap 6 (5-15); BUN 15 mg/dL (7-18); Calcium,Total 7.6 mg/dL (8.5-10.1); Chloride 110 mmol/L (98-107); Creatinine, Serum 0.65 mg/dL (0.70-1.30); EST Glomerular Filtration Rate 127 mL/min (>60); Est Glom Filt Rate - Afr Amer 153 mL/min (>60); Estimated Creatinine Clearance 80.51 ml/min; Glucose 99 mg/dL (74-106); Potassium 2.8 mmol/L (3.5-5.1); Sodium Level 140 mmol/L (136-145)
[2023-09-08 17:05] LABS: Bedside Glucose 95 mg/dL (74-106)
[2023-09-08] MEDS: Rosuvastatin 20 MG Tablet PO (21:16)
[2023-09-08] MEDS: Ezetimibe 10 MG Tablet PO (21:16)
[2023-09-08 22:14] LABS: Bedside Glucose 215 mg/dL (74-106)
[2023-09-09] VITALS (10 sets, daily range): BP systolic 95–115; BP diastolic 52–70; PULSE 60–81; RESP 16–18; TEMP 36.5–36.9; O2SAT 95–98
[2023-09-09] MEDS: Cefazolin 1 GM/50 ML BAG IV ×3 (06:08→21:03)
[2023-09-09 06:22] LABS: Absolute Neutrophil Count 11.7 X10^3/uL (2.0-7.7); Basophil# 0.02 X10^3/uL; Basophil% 0.2 % (0-1); Hematocrit 28.8 % (40-54); Hemoglobin 9.7 g/dL (13.0-16.5); Lymphocyte % 6.9 % (19-41); Mean Corp Hgb Conc 33.7 g/dL (32-36); Mean Corpuscular Hgb 30.2 pg (27.0-32.0); Mean Corpuscular Volume 89.7 fL (80-94); Mean Platelet Vol. 10.4 fl (6.2-12.0); Monocyte# 0.29 X10^3/uL; Monocyte% 2.2 % (0-10); NRBC Flagged by Analyzer 0 % (0-5); Neutrophil # 11.67 X10^3/uL (2.7-7.7); Neutrophil % 89.9 % (47-70); Platelet Count 238 K/mm3 (150-450); RBC Distribution Width CV 14.6 % (11.6-14.6); RBC Distribution Width SD 46.9 fl (35.1-43.9); Red Blood Count 3.21 M/mm3 (4.6-6.2)
[2023-09-09 06:28] LABS: Bedside Glucose 161 mg/dL (74-106)
[2023-09-09 06:50] LABS: Anion Gap 7 (5-15); BUN 21 mg/dL (7-18); BUN/Creat Ratio 23.9 RATIO (10-20); Calcium,Total 8.2 mg/dL (8.5-10.1); Chloride 105 mmol/L (98-107); Creatinine, Serum 0.88 mg/dL (0.70-1.30); EST Glomerular Filtration Rate 90 mL/min (>60); Est Glom Filt Rate - Afr Amer 109 mL/min (>60); Estimated Creatinine Clearance 73.19 ml/min; Glucose 148 mg/dL (74-106); Potassium 3.6 mmol/L (3.5-5.1); Sodium Level 136 mmol/L (136-145)
[2023-09-09] MEDS: Lisinopril 5 MG Tablet PO (09:27)
[2023-09-09] MEDS: Pantoprazole Sodium 40 MG Tablet PO (09:27)
[2023-09-09] MEDS: predniSONE 5 MG Tablet PO (09:28)
[2023-09-09] MEDS: Insulin Lispro 100 UNIT/ML INSULN.PEN SC (11:44)
[2023-09-09 12:04] LABS: Bedside Glucose 255 mg/dL (74-106)
--- NOTE | 2023-09-09 13:07 | PN.HOSP_ITS ---
Reason for Visit Reason for Visit: Diagnoses Malignant neoplasm of prostate (09/06/23) Gross hematuria (09/06/23) Subjective Subjective Patient was seen and examined today, he does not have any hematuria in his Capellan bag today, he states that he has no bladder discomfort. His is in the room at the time my examination. Patient was given 2 units of packed red blood cells yesterday, his hemoglobin today is 9.7. Objective Data Objective Data Vital Signs: Vital Signs Temp Pulse Resp BP Pulse Ox O2 Del Method 98.1 F 79 18 115/69 98 Room Air 09/09/23 09:23 09/09/23 09:23 09/09/23 09:23 09/09/23 09:23 09/09/23 09:23 09/09/23 09:23 Oxygen Delivery Method Room Air Weight: 70.261 kg Body Mass Index (BMI) 21.7 Intake & Output: Intake and Output for Last 24 Hours 09/07/23 09/08/23 09/09/23 23:59 23:59 23:59 Intake Total 1686.50 / 1686.50 150 / 150 50 / 50 Output Total 3820 / 4620 4730 / 4730 1100 / 1100 Balance -2133.50 / -2933.50 -4580 / -4580 -1050 / -1050 Lab / Micro Data 09/09/23 06:07 09/09/23 06:07 Labs: Laboratory Results - last 24 hr 09/08/23 15:47: WBC 9.1, RBC 2.21 L, Hgb 6.8 L, Hct 20.9 L, MCV 94.6 H, MCH 30.8, MCHC 32.5, RDW Std Deviation 46.8 H, RDW Coeff of Rayo 13.4, Plt Count 183, MPV 10.4, Sodium 140, Potassium 2.8 L, Chloride 110 H, Carbon Dioxide 24.0, Anion Gap 6, BUN 15, Creatinine 0.65 L, Estim Creat Clear Calc 80.51, Est GFR (MDRD) Af Amer 153, Est GFR (MDRD) Non-Af 127, BUN/Creatinine Ratio 23.0 H, Glucose 99, Calcium 7.6 L 09/08/23 16:45: POC Glucose 95 09/08/23 17:36: Blood Type O POSITIVE, Antibody Screen NEGATIVE, Crossmatch See Detail 09/08/23 21:13: POC Glucose 215 H 09/09/23 06:07: WBC 13.0 H, RBC 3.21 L, Hgb 9.7 L, Hct 28.8 L, MCV 89.7 D, MCH 30.2, MCHC 33.7, RDW Std Deviation 46.9 H, RDW Coeff of Rayo 14.6, Plt Count 238, MPV 10.4, Immature Gran % (Auto) 0.800, Neut % (Auto) 89.9 H, Lymph % (Auto) 6.9 L, [place] % (Auto) 2.2, Eos % (Auto) 0.0, Baso % (Auto) 0.2, Absolute Neuts (auto) 11.7 H, Absolute Lymphs (auto) 0.90, Nucleated RBC % 0, Sodium 136, Potassium 3.6, Chloride 105, Carbon Dioxide 24.0, Anion Gap 7, BUN 21 H, Creatinine 0.88, Estim Creat Clear Calc 73.19, Est GFR (MDRD) Af Amer 109, Est GFR (MDRD) Non-Af 90, BUN/Creatinine Ratio 23.9 H, Glucose 148 H, Calcium 8.2 L, POC Glucose 161 H 09/09/23 11:40: POC Glucose 255 H Physical Exam Narrative alert, oriented x3, no apparent distress, average body habitus and healthy appearing Constitutional Narrative: Patient has a three-way Capellan in place and is receiving bladder irrigation with return of bloody urine. General Appearance: cooperative, well kempt and well developed Orientation / Consciousness: awake, oriented to person, oriented to place and oriented to time HEENT normocephalic, head/scalp atraumatic and moist oral mucous membranes Eyes PERRL, EOMs intact bilaterally and conjunctivae normal Neck supple, no JVD, thyroid normal and no carotid bruits General: trachea midline Resp normal respiratory effort, no retractions, no use of accessory muscles and clear to auscultation bilaterally Auscultation: Negative for rales, rhonchi or wheezes Cardio regular rate, regular rhythm, S1 normal heart sound, S2 normal heart sound, no murmurs, no rub and no gallops GI normal to inspection, nondistended, normoactive bowel sounds, soft to palpation, non-tender and non-distended Extremity no clubbing, cyanosis or edema Skin no rashes or lesions noted General Skin Exam: no breakdown Neuro oriented x3, CN's II-XII intact bilaterally, moves all extremities, no focal motor deficits and no sensory deficits noted Sensorium / Orientation: awake, alert, oriented to person, oriented to place and oriented to time Speech: speech normal Psych affect normal Assessment & Plan Assessment/Plan (1) Gross hematuria: PLAN: Plan 1. Coronary artery disease-status post stent placement in July 2023-patient is currently off his Brilinta and aspirin, he will need to resume aspirin and Plavix when he is discharged to home #2 essential hypertension-patient will remain on his home medications, blood pressure will be monitored #3 prostate cancer-complicates care, management, recovery, and prognosis #4 type 2 diabetes-blood sugars will be monitored, sliding scale insulin will be administered as needed #5 gross hematuria secondary to bladder neck bleeding-again urology will be taking the patient to surgery today, I talked to urology concerning placing the patient on Plavix at the time of discharge from the hospital. #6 acute blood loss anemia secondary to acute hematuria-patient required blood transfusion yesterday, his hemoglobin does not warrant transfusion today. Total clinical time spent by myself addressing the patient's medical issues, reviewing all of his data, and collaborating with patient's care team: 35 minutes Charges/Coding Visit Charges Inpatient E&M: 34405 Subs Hosp L2
[2023-09-09 17:50] LABS: Bedside Glucose 216 mg/dL (74-106)
[2023-09-09] MEDS: Rosuvastatin 20 MG Tablet PO (22:40)
[2023-09-09] MEDS: Ezetimibe 10 MG Tablet PO (22:41)
[2023-09-09 23:09] LABS: Bedside Glucose 197 mg/dL (74-106)
[2023-09-10] MEDS: guaiFENesin Dm 10 ML UDC PO (01:23)
[2023-09-10 03:07] VITALS: BP 118/65; PULSE 65; RESP 16; TEMP 36.2; O2SAT 99
[2023-09-10] MEDS: Cefazolin 1 GM/50 ML BAG IV (06:30)
[2023-09-10 07:01] LABS: Bedside Glucose 137 mg/dL (74-106)
--- NOTE | 2023-09-10 08:28 | PCM.PN.GU ---
Subjective Subjective s/p 2nd look cauterization of bleeding no more bleeding off all blood thinners stop irrigation probably discharge tomorrow with nelson. Objective Data Objective Data Vital Signs: Vital Signs Temp Pulse Resp BP Pulse Ox O2 Del Method 97.2 F L 65 16 118/65 99 Room Air 09/10/23 03:07 09/10/23 03:07 09/10/23 03:07 09/10/23 03:07 09/10/23 03:07 09/10/23 03:07 Oxygen Delivery Method Room Air Weight: 70.261 kg Body Mass Index (BMI) 21.7 Intake & Output: Intake and Output for Last 24 Hours 09/08/23 09/09/23 09/10/23 23:59 23:59 23:59 Intake Total 150 / 150 1170 / 1170 185 / 185 Output Total 4730 / 4730 3300 / 3300 Balance -4580 / -4580 -2130 / -2130 185 / 185 Lab / Micro Data 09/09/23 06:07 09/09/23 06:07 Labs: Laboratory Results - last 24 hr 09/09/23 11:40: POC Glucose 255 H 09/09/23 17:24: POC Glucose 216 H 09/09/23 22:37: POC Glucose 197 H 09/10/23 06:28: POC Glucose 137 H
[2023-09-10 09:03] VITALS: BP 110/69; PULSE 60; RESP 16; TEMP 37; O2SAT 98
[2023-09-10] MEDS: Pantoprazole Sodium 40 MG Tablet PO (10:09)
[2023-09-10] MEDS: predniSONE 5 MG Tablet PO (10:09)
[2023-09-10] MEDS: Lisinopril 5 MG Tablet PO (10:09)
[2023-09-10 12:12] LABS: Bedside Glucose 151 mg/dL (74-106)
--- NOTE | 2023-09-10 13:53 | PN.HOSP_ITS ---
Reason for Visit Reason for Visit: Diagnoses Malignant neoplasm of prostate (09/06/23) Gross hematuria (09/06/23) Subjective Subjective Patient was seen and examined today, I talked briefly with urology about his care, patient's was in the room at the time my examination and she stated that urology did not want the patient to go back on Farxiga because they were worried that the glucose in the urine was causing a problem. I asked the segundo delgado and his to call his umbrella tipper hand office tomorrow and ascertain when the umbrella tipper hand wanted him to go back on antiplatelet drugs, he will need to go back on aspirin, refrain from taking Brilinta but go on Plavix instead. Objective Data Objective Data Vital Signs: Vital Signs Temp Pulse Resp BP Pulse Ox O2 Del Method 98.6 F 60 16 110/69 98 Room Air 09/10/23 09:03 09/10/23 09:03 09/10/23 09:03 09/10/23 09:03 09/10/23 09:03 09/10/23 09:04 Oxygen Delivery Method Room Air Weight: 70.261 kg Body Mass Index (BMI) 21.7 Intake & Output: Intake and Output for Last 24 Hours 09/08/23 09/09/23 09/10/23 23:59 23:59 23:59 Intake Total 150 / 150 1170 / 1170 212.5 / 212.5 Output Total 4730 / 4730 3300 / 3300 Balance -4580 / -4580 -2130 / -2130 212.5 / 212.5 Lab / Micro Data 09/09/23 06:07 09/09/23 06:07 Labs: Laboratory Results - last 24 hr 09/09/23 17:24: POC Glucose 216 H 09/09/23 22:37: POC Glucose 197 H 09/10/23 06:28: POC Glucose 137 H 09/10/23 11:50: POC Glucose 151 H Physical Exam Narrative alert, oriented x3, no apparent distress, average body habitus and healthy a ppearing Constitutional Narrative: Patient has a three-way Capellan in place and is receiving bladder irrigation with return of bloody urine. General Appearance: cooperative, well kempt and well developed Orientation / Consciousness: awake, oriented to person, oriented to place and oriented to time HEENT normocephalic, head/scalp atraumatic and moist oral mucous membranes Eyes PERRL, EOMs intact bilaterally and conjunctivae normal Neck supple, no JVD, thyroid normal and no carotid bruits General: trachea midline Resp normal respiratory effort, no retractions, no use of accessory muscles and clear to auscultation bilaterally Auscultation: Negative for rales, rhonchi or wheezes Cardio regular rate, regular rhythm, S1 normal heart sound, S2 normal heart sound, no murmurs, no rub and no gallops GI normal to inspection, nondistended, normoactive bowel sounds, soft to palpation, non-tender and non-distended Extremity no clubbing, cyanosis or edema Skin no rashes or lesions noted General Skin Exam: no breakdown Neuro oriented x3, CN's II-XII intact bilaterally, moves all extremities, no focal motor deficits and no sensory deficits noted Sensorium / Orientation: awake, alert, oriented to person, oriented to place and oriented to time Speech: speech normal Psych affect normal Assessment & Plan Assessment/Plan (1) Gross hematuria: PLAN: Plan 1. Coronary artery disease-status post stent placement in July 2023-patient is currently off his Brilinta and aspirin, he will need to resume aspirin and Plavix when he is discharged to home, the timeframe of the patient resuming his antiplatelet drugs is not clear at this time, I have ask him and his to call his umbrella tipper hand office to get an idea when he should start back on aspirin and Plavix. #2 essential hypertension-patient will remain on his home medications, blood pressure will be monitored #3 prostate cancer-complicates care, management, recovery, and prognosis #4 type 2 diabetes-blood sugars will be monitored, sliding scale insulin will be administered as needed, patient will be following up with his PCP regarding any other medications for type 2 diabetes #5 gross hematuria secondary to bladder neck bleeding-again urology will be taking the patient to surgery today, I talked to urology concerning placing the patient on Plavix at the time of discharge from the hospital. #6 acute blood loss anemia secondary to acute hematuria-patient required blood transfusion yesterday, his hemoglobin does not warrant transfusion today. Total clinical time spent by myself addressing the patient's medical issues, reviewing all of his data, and collaborating with patient's care team: 35 minutes Charges/Coding Visit Charges Inpatient E&M: 10529 Subs Hosp L2
[2023-09-10] MEDS: Insulin Lispro 100 UNIT/ML INSULN.PEN SC (16:48)
[2023-09-10 16:59] VITALS: BP 98/55; PULSE 61; RESP 16; TEMP 36.8; O2SAT 97
[2023-09-10 17:07] LABS: Bedside Glucose 214 mg/dL (74-106)
[2023-09-10 22:07] VITALS: BP 94/71; PULSE 63; RESP 16; TEMP 36.9; O2SAT 95
[2023-09-10] MEDS: Ezetimibe 10 MG Tablet PO (22:10)
[2023-09-10] MEDS: Rosuvastatin 20 MG Tablet PO (22:11)
[2023-09-10 22:48] LABS: Bedside Glucose 143 mg/dL (74-106)
[2023-09-11 02:18] VITALS: BP 112/71; PULSE 72; RESP 16; TEMP 36.4; O2SAT 95
[2023-09-11] MEDS: Acetaminophen 325 MG Tablet 650 MG PO (02:23)
[2023-09-11 06:51] LABS: Absolute Lymphocyte Count 2.99 X10^3/uL (0.83-4.51); Absolute Neutrophil Count 8.1 X10^3/uL (2.0-7.7); Basophil# 0.08 X10^3/uL; Basophil% 0.6 % (0-1); Eosinophil# 0.45 X10^3/uL; Eosinophils% 3.6 % (0-5); Hematocrit 33.5 % (40-54); Hemoglobin 10.8 g/dL (13.0-16.5); Lymphocyte # 2.99 X10^3/ul (0.83-4.51); Lymphocyte % 23.8 % (19-41); Mean Corp Hgb Conc 32.2 g/dL (32-36); Mean Corpuscular Hgb 29.8 pg (27.0-32.0); Mean Corpuscular Volume 92.5 fL (80-94); Monocyte# 0.76 X10^3/uL; NRBC Flagged by Analyzer 0.2 % (0-5); Neutrophil # 8.09 X10^3/uL (2.7-7.7); Neutrophil % 64.3 % (47-70); Platelet Count 316 K/mm3 (150-450); RBC Distribution Width CV 15.1 % (11.6-14.6); RBC Distribution Width SD 49.5 fl (35.1-43.9); Red Blood Count 3.62 M/mm3 (4.6-6.2); White Blood Count 12.6 K/mm3 (4.4-11.0)
[2023-09-11 06:55] LABS: Bedside Glucose 117 mg/dL (74-106)
--- NOTE | 2023-09-11 07:29 | PCM.DC.SUM ---
Providers Date of Admission: 09/06/23 Date of Discharge: 09/11/23 Primary Care Physician: JAMES OLEA Consultations 09/06/23 05:10 Consult: Hospitalist Routine Consulting Provider: Luis Manuel Phillips Reason for Consult: hospitalist medical manegment, assist with his care EMERGENT Consult: No MD Notified: Yes Date Notified: 09/06/23 Time Notified: 07:01 Method of Notification: Text Reason For Visit: GROSS HEMATURIA & PROSTATE CANCER Diagnosis Discharge Diagnosis (1) Gross hematuria: Status: Acute Code(s): R31.0 - Gross hematuria Plan: Plan to take her to surgery today for cystoscopy evacuation of his blood clots and cauterization of the bleeding will hold his Brilinta because of the significant bleeding he does have a history of coronary artery disease and had a stent placed in the past Medications at Discharge Home Medications abiraterone 500 mg tablet 1,000 mg PO DAILY see 09/06/23 cephalexin 250 mg capsule 250 mg PO 4X/DAY atb 09/06/23 dapagliflozin propanediol 10 mg tablet (Farxiga) 10 mg PO DAILY see 09/06/23 ezetimibe 10 mg tablet 10 mg PO DAILY see 09/06/23 lisinopril 5 mg tablet 5 mg PO DAILY high blood pressure 09/06/23 pantoprazole 40 mg tablet,delayed release 40 mg PO DAILY stomach 09/06/23 prednisone 5 mg tablet 5 mg PO DAILY steroid 09/06/23 rosuvastatin 20 mg tablet 20 mg PO QHS 09/06/23 aspirin 81 mg capsule 81 mg PO DAILY #30 caps 09/11/23 clopidogrel 75 mg tablet (Plavix) 75 mg PO DAILY #30 tabs 09/11/23 Hospital Course Summary of Care Provided Minutes Spent on Discharge: 30 Hospital Course: 72-year-old male with a history of prostate cancer treated with radical prostatectomy this was followed with radiation therapy all this treatment was done at an outside facility down in the [facility]. Patient was. Visit is eating and vacationing in [place] instantly developed gross hematuria his history is significant for having coronary artery disease and recently had a coronary stent placed and was put on Brilinta he had significant bleeding presented to an outside emergency room down in [place] he was transferred up he is taken immediately there is surgery for clot evacuation. We then put him on traction and irrigation but he continued to bleed. All blood thinners were held. We spoke to his senior operations analyst. Hospitalist was involved. He was then taken back to surgery a second time this time we used a Olympus bipolar resectoscope and cauterize extensively most of the bleeding was from around the bladder neck. We put a 22 Indonesian catheter on traction 30 cc balloon and irrigation and fortunately with a second scope look his bleeding stopped. Kept him over the weekend held all his blood thinners. And now he will be going home with a Nelson catheter to leg bag to allow this to heal he was instructed to restart aspirin and the hospitalist spoke to his senior operations analyst and they recommended Plavix 75 mg daily. He will go home today with a catheter resume all his medications resume aspirin and Plavix and will follow-up with his urologist and the [facility]. Physical Exam Const alert and oriented x3 General Appearance: cooperative HEENT normocephalic, head/scalp atraumatic, EAC's normal and TM's normal bilaterally Eyes PERRL and EOMs intact bilaterally Pupil: sluggish Neck no lymphadenopathy, supple and no JVD General: trachea midline Lymph Lymphatic: no lymphadenopathy noted, lymphedema and lymphadenopathy Resp normal respiratory effort, normal air movement and clear to auscultation bilaterally Cardio regular rate, regular rhythm and peripheral pulses 2+ throughout GI soft to palpation, non-tender and non-distended Extremity normal capillary refill and no clubbing, cyanosis or edema General Extremity: no tenderness to palpation of joints or extremities Skin no rashes or lesions noted General Skin Exam: turgor normal Lesions: no lesions Rashes: no rashes Neuro CN's II-XII intact bilaterally Speech: speech normal Motor Exam: strength 5/5 throughout; Negative for general weakness Psych thought process normal, cooperative and affect normal Appearance: appropriate Medical Records Data Attestation: I reviewed the patient's medical records Weight / BMI Weight Weight: 70.261 kg Body Mass Index (BMI) 21.7 ABG / Lab / Microbiology Data 09/11/23 06:31 09/09/23 06:07 Laboratory: Laboratory Results - last 24 hr 09/10/23 11:50: POC Glucose 151 H 09/10/23 16:45: POC Glucose 214 H 09/10/23 22:15: POC Glucose 143 H 09/11/23 06:20: POC Glucose 117 H 09/11/23 06:31: WBC 12.6 H, RBC 3.62 L, Hgb 10.8 L, Hct 33.5 L, MCV 92.5, MCH 29.8, MCHC 32.2, RDW Std Deviation 49.5 H, RDW Coeff of Rayo 15.1 H, Plt Count 316, MPV 10.0, Immature Gran % (Auto) 1.700 H, Neut % (Auto) 64.3, Lymph % (Auto) 23.8, [place] % (Auto) 6.0, Eos % (Auto) 3.6, Baso % (Auto) 0.6, Absolute Neuts (auto) 8.1 H, Absolute Lymphs (auto) 2.99, Nucleated RBC % 0.2 D/C Instructions Discharge Diet: No restrictions Discharge Activity: Return to Normal Activity and May Not Drive (while taking narcotic pain medications.) Call your doctor if you observe: Fever of 101 or Higher Catheter: Nelson to leg bag and Nelson to large bag Drain: [place] Please Follow Up With: Kaushik Snow MD When: Call [phone] for an appointment Meaningful Use Info Meaningful Use Diagnoses (Choose all that apply): None applicable Discharge Plan Admission Admit Date/Time: 09/06/23 04:10 Primary Reason for Your Visit: Gross hematuria prostate cancer Attending Provider: Kaushik Snow Primary Care Provider: JAMES OLEA Consulting Providers: Luis Manuel Phillips; Corey Molina Instructions Additional Instructions / Restrictions: Restart aspirin and plavix on Monday Home with nelson to leg bag. Discharge Orders/Prescriptions Prescriptions: New aspirin 81 mg capsule 81 mg PO DAILY Qty: 30 0RF clopidogrel [Plavix] 75 mg tablet 75 mg PO DAILY Qty: 30 0RF Continued abiraterone 500 mg tablet 1,000 mg PO DAILY cephalexin 250 mg capsule 250 mg PO 4X/DAY lisinopril 5 mg tablet 5 mg PO DAILY dapagliflozin propanediol [Farxiga] 10 mg tablet 10 mg PO DAILY pantoprazole 40 mg tablet,delayed release (DR/EC) 40 mg PO DAILY ezetimibe 10 mg tablet 10 mg PO DAILY prednisone 5 mg tablet 5 mg PO DAILY rosuvastatin 20 mg tablet 20 mg PO QHS Discontinued Brilinta 90 mg tablet 90 mg PO BID Hold Instructions: Resume on 09/20/23. Referrals / Follow Up: Kaushik Snow MD [Med Staff - Active Staff] - Disposition Discharge Orders: Discharge Patient (Routine); Ordered 09/11/23 Ordered By: Dr. Kaushik Snow
[2023-09-11 08:34] VITALS: BP 117/75; PULSE 70; RESP 16; TEMP 36.6; O2SAT 99
[2023-09-11] MEDS: predniSONE 5 MG Tablet PO (08:38)
[2023-09-11] MEDS: Lisinopril 5 MG Tablet PO (08:40)
[2023-09-11] MEDS: Pantoprazole Sodium 40 MG Tablet PO (08:40)
--- NOTE | 2023-09-11 09:37 | CASEMGMT ---
YOON CM into pt room, pt with at bedside, pt states he has had a nelson in the past and denies any issues with it. Pt states he is just embarrassed of it and thinks he will use a leg bag. Pt to assist. Pt feels safe to go home. Pt [place] go [place] then will plan to start driving home. Pt denies any needs.
--- NOTE | 2023-09-11 10:00 | PHA.DC_ITS ---
Pharmacy [facility] Pharmacy Service has performed discharge medication reconciliation and counseling for this patient. 1. ASPIRIN 81MG PO DAILYCM 2. CLOPIDOGREL 75MG PO DAILY The patient's discharge medication list was reviewed for discrepancies and discrepancies were resolved. The patient was counseled on the following discharge medications and changes in medications for homegoing were reviewed. The Reason for Use, instructions for use, and potential side effects were reviewed for all new medications. The patient's questions regarding all of their medications were answered. The patient was able to verbally demonstrate an understanding of their discharge medications. Medications at Discharge Home Medications abiraterone 500 mg tablet 1,000 mg PO DAILY see 09/06/23 cephalexin 250 mg capsule 250 mg PO 4X/DAY atb 09/06/23 dapagliflozin propanediol 10 mg tablet (Farxiga) 10 mg PO DAILY see 09/06/23 ezetimibe 10 mg tablet 10 mg PO DAILY see 09/06/23 lisinopril 5 mg tablet 5 mg PO DAILY high blood pressure 09/06/23 pantoprazole 40 mg tablet,delayed release 40 mg PO DAILY stomach 09/06/23 prednisone 5 mg tablet 5 mg PO DAILY steroid 09/06/23 rosuvastatin 20 mg tablet 20 mg PO QHS 09/06/23 aspirin 81 mg capsule 81 mg PO DAILY #30 caps 09/11/23 clopidogrel 75 mg tablet (Plavix) 75 mg PO DAILY #30 tabs 09/11/23
--- NOTE | 2023-09-11 11:26 | PN.HOSP_ITS ---
Reason for Visit Reason for Visit: Diagnoses Malignant neoplasm of prostate (09/06/23) Gross hematuria (09/06/23) Subjective Subjective No acute events overnight. Patient seen at bedside this morning, daughter present. Patient sitting up comfortably in bed, conversing normally, in no acute distress. Was told earlier this morning by Dr. Snow (Urology primary) that he will be discharged today and he was happy about this. He continues to tolerate Nelson catheter without issue. Reiterated to them Dr. Snow's recs to restart aspirin and Plavix on Monday and they were understanding. No other concerns today. Objective Data Objective Data Vital Signs: Vital Signs Temp Pulse Resp BP Pulse Ox O2 Del Method 97.9 F 70 16 117/75 99 Room Air 09/11/23 08:34 09/11/23 08:34 09/11/23 08:34 09/11/23 08:34 09/11/23 08:34 09/11/23 08:49 Oxygen Delivery Method Room Air Weight: 70.261 kg Body Mass Index (BMI) 21.7 Intake & Output: Intake and Output for Last 24 Hours 09/09/23 09/10/23 09/11/23 23:59 23:59 23:59 Intake Total 1170 / 1170 512.5 / 512.5 300 / 300 Output Total 3300 / 3300 1600 / 1600 1650 / 1650 Balance -2130 / -2130 -1087.5 / -1087.5 -1350 / -1350 Lab / Micro Data 09/11/23 06:31 09/09/23 06:07 Labs: Laboratory Results - last 24 hr 09/10/23 11:50: POC Glucose 151 H 09/10/23 16:45: POC Glucose 214 H 09/10/23 22:15: POC Glucose 143 H 09/11/23 06:20: POC Glucose 117 H 09/11/23 06:31: WBC 12.6 H, RBC 3.62 L, Hgb 10.8 L, Hct 33.5 L, MCV 92.5, MCH 29.8, MCHC 32.2, RDW Std Deviation 49.5 H, RDW Coeff of Rayo 15.1 H, Plt Count 316, MPV 10.0, Immature Gran % (Auto) 1.700 H, Neut % (Auto) 64.3, Lymph % (Auto ) 23.8, [place] % (Auto) 6.0, Eos % (Auto) 3.6, Baso % (Auto) 0.6, Absolute Neuts (auto) 8.1 H, Absolute Lymphs (auto) 2.99, Nucleated RBC % 0.2 Physical Exam Const alert, oriented x3, average body habitus and healthy appearing General Appearance: cooperative, comfortable, well kempt and well developed HEENT normocephalic, head/scalp atraumatic, hearing grossly normal bilaterally, nasal mucous membranes and turbinates normal and moist oral mucous membranes Eyes PERRL, EOMs intact bilaterally and conjunctivae normal Neck full ROM Chest inspection of chest normal Resp normal respiratory effort, normal air movement, no use of accessory muscles and clear to auscultation bilaterally Cardio regular rate, regular rhythm, no murmurs and peripheral pulses 2+ throughout GI normal to inspection, nondistended, normoactive bowel sounds, soft to palpation, non-tender and non-distended Narrative: Nelson in place, draining mild reddish tinged yellow urine. Back/Spine normal ROM Extremity normal to inspection, full ROM and no pedal edema Skin no rashes or lesions noted Neuro no focal motor deficits and no sensory deficits noted Speech: speech normal Psych mental status grossly normal Assessment & Plan Assessment/Plan (1) Gross hematuria: (2) Acute blood loss anemia: PLAN: Plan Patient is a 72 year old male who presented to [facility] ED on 09/06/2023 with gross hematuria. 1. 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 S/p cystoscopy with evacuation of blood clots, cauterization of bleeding and placement of 3-way Nelson catheter on 09/05. Had continued bleeding with clots requiring another cystoscopy with evacuation of clots and extensive cauterization of bleeding on 09/07. Much improved after 2nd procedure. Plan is for outpatient follow up with Urology in [place] next Sunday 09/17. Continue nelson catheter until then. 2. CAD s/p recent stent placement in July 2023 - Discussed with patient's mold inspector in [place]. Home aspirin and Brilinta held during admission. Will switch to Plavix and restart aspirin and Plavix on Tuesday 09/12 per Urology recs. 3. Acute blood loss anemia secondary to hematuria, improved - Hemoglobin 13.0 on admit, lilliam of 6.8 on 09/07 requiring 3 units of pRBCs. Repeat hemoglobin 9.7 on 09/08, improved to 10.8 on day of discharge. 4. Type 2 diabetes mellitus - Stable on sliding scale insulin while inpatient. Farxiga discontinued on discharge per Urology recs. Okay for outpatient follow up to determine further medication needs going forward. Chronic medical conditions: - Hyperlipidemia: Continue home Zetia and statin. - HTN: Continue home lisinopril. - GERD: Continue home PPI. Total clinical time spent by myself addressing the patient's medical issues, reviewing all the data, and collaborating with patient's care team: 35 minutes. Charges/Coding Visit Charges Inpatient E&M: 61081 Subs Hosp L2
[2023-09-11 11:50] LABS: Bedside Glucose 138 mg/dL (74-106)
[2023-09-11 12:15] VITALS: BP 108/60; PULSE 66; RESP 16; TEMP 36.6; O2SAT 96
== END 2023-09-11 12:39 | disposition home or self-care (01) | DRG 696 ==
PROVIDERS: Internal Medicine; Admitting Provider Urology; Visit Provider Urology
PROC: 0TCC8ZZ Extirpation of Matter from Bladder Neck, Via Natural or Artificial Opening Endoscopic (ICD-10-PCS; CPT 52214; principal; 2023-09-06 04:00)
PROC: 0TBB8ZZ Excision of Bladder, Via Natural or Artificial Opening Endoscopic (ICD-10-PCS; principal; 2023-09-08 16:35)
DX: R31.0 Gross hematuria (principal); D62 Acute posthemorrhagic anemia; C61 Malignant neoplasm of prostate; E11.9 Type 2 diabetes mellitus without complications; I10 Essential (primary) hypertension; I25.10 Atherosclerotic heart disease of native coronary artery without angina pectoris; K21.9 Gastro-esophageal reflux disease without esophagitis; Z95.5 Presence of coronary angioplasty implant and graft; Y84.2 Radiological procedure and radiotherapy as the cause of abnormal reaction of the patient, or of later complication, without mention of misadventure at the time of the procedure
CPT/HCPCS: 36415; 80048; 82962; 85025; 85027; 86850; 86900; 86901; 86920; 86922; 88304; 93005; 94668; 97161; 97166; 97802; J7030; J7120; P9016; A4216; C1769; J2405